=== PATIENT | female | born 1970 | race Caucasian/White ===

== ENCOUNTER 2022-11-09 22:11 | Inpatient (IN) | payer MEDICARE, OTHER ==
[~2022-11-09] VITALS: Ht 162.6 cm; Wt 65.8 kg
--- NOTE | 2022-11-09 23:00 | NUR ---
PT BIBA FOR SYNCOPY. PT PLACED ON MONITOR.
[2022-11-09] MEDS ORDERED: IV NORMAL SALINE 500 ML BAG IV ONE (23:15)
[2022-11-09] MEDS ORDERED: MORPHINE SULFATE 2 MG/1 ML DISP.SYRIN IV ONE (23:30)
[2022-11-09 23:41] LABS: CARBON DIOXIDE 33 mmol/L (21-32); CHLORIDE 103 mmol/L (98-107); CREATININE 0.4 mg/dL (0.6-1.3); POTASSIUM 4.2 mmol/L (3.5-5.1); UREA NITROGEN, BLOOD 10 mg/dL (7-18)
[2022-11-09] MEDS ORDERED: LORAZEPAM 2 MG/1 ML VIAL IV ONE (23:45)
[2022-11-09 23:49] LABS: ALANINE AMINOTRANSFERASE 13 U/L (14-59); ALKALINE PHOSPHATASE 96 U/L (50-136); ASPARTATE AMINOTRANSFERASE 14 U/L (15-37); BILIRUBIN,DIRECT 0.1 mg/dL (0.0-0.2); BILIRUBIN,TOTAL 0.2 mg/dL (0.2-1.0); TOTAL PROTEIN, SERUM 7.3 g/dL (6.4-8.2)
[2022-11-09] MEDS ORDERED: MORPHINE SULFATE 2 MG/1 ML DISP.SYRIN ONE (23:50)
[2022-11-09] MEDS ORDERED: LORAZEPAM 2 MG/1 ML VIAL ONE (23:51)
[2022-11-09 23:55] LABS: THYROID STIMULATING HORMONE 0.856 mIU/mL (0.358-3.740)
[2022-11-10 00:06] LABS: HEMATOCRIT 29.1 % (31.2-41.9); MEAN CORPUSCULAR HEMOGLOBIN 31.7 uug (24.7-32.8); PLATELET COUNT (AUTO) 938 K/uL (179-408)
[2022-11-10] MEDS ORDERED: IV D5W-0.45% NS +20 KCL 1,000 ML IV ONE ×2 (00:30→05:37)
--- NOTE | 2022-11-10 00:30 | NUR ---
[facility] SPEAKING TO DR LONG.
[2022-11-10] MEDS ORDERED: IV D5 1/2 NS 1000 ML 1,000 ML IV PRN (00:45)
[2022-11-10] MEDS ORDERED: LORAZEPAM 2 MG/1 ML VIAL IV PRN ×2 (00:45→13:45)
[2022-11-10] MEDS ORDERED: ENOXAPARIN SODIUM 40 MG/0.4 ML DISP.SYRIN SQ SCH ×3 (00:45→13:45)
[2022-11-10] MEDS ORDERED: ONDANSETRON 4 MG/2 ML VIAL IV PRN ×2 (00:45→13:45)
[2022-11-10] MEDS ORDERED: REMEDY ESSENTIAL ZINC PASTE 113 GM TP PRN ×2 (00:45→13:45)
[2022-11-10] MEDS ORDERED: ENOXAPARIN SODIUM 40 MG/0.4 ML DISP.SYRIN SQ ONE (05:36)
--- NOTE | 2022-11-10 07:46 | NUR ---
called 3rd floor for report. no nurse assigned yet awaiting for call back
--- NOTE | 2022-11-10 08:27 | NUR ---
collected MRSA and sent to lab
--- NOTE | 2022-11-10 08:52 | NUR ---
kan care done
[2022-11-10 10:38] LABS: *BILIRUBIN,URIN NEGATIVE (NEGATIVE); *CLARITY,URINE CLEAR (CLEAR); *COLOR,URINE Other (YELLOW); *KETONES,URINE NEGATIVE (NEGATIVE); *UROBILINOGEN,URINE 0.2 E.U./dl (NORMAL); LEUKOCYTE ESTERASE ,URINE NEGATIVE (NEGATIVE); NITRITE, URINE NEGATIVE (NEGATIVE); UGLUCOSE NEGATIVE (NEGATIVE)
[2022-11-10 10:39] LABS: *BLOOD, URINE TRACE (NEGATIVE)
[2022-11-10 11:08] LABS: BACTERIA,URINE FEW /HPF (NONE SEEN); SQUAMOUS EPITHELIAL CELL,UR FEW /HPF (NONE SEEN); WBC,URINE 0-3 /HPF (0-3)
[2022-11-10] MEDS ORDERED: PANTOPRAZOLE SODIUM 40 MG VIAL IV SCH (12:00)
--- NOTE | 2022-11-10 12:42 | NUR ---
called to confirm if we can transfer patient to [facility]. will wait for Kyra TYLER to call back
--- NOTE | 2022-11-10 13:03 | NUR ---
kan care done
[2022-11-10] MEDS ORDERED: MAGNESIUM HYDROXIDE 30 ML LIQUID UDC PO PRN (13:45)
[2022-11-10] MEDS ORDERED: ACETAMINOPHEN 325 MG TABLET PO PRN (13:45)
--- NOTE | 2022-11-10 13:53 | NUR ---
endorsed to Kyra TYLER to [facility]
--- NOTE | 2022-11-10 14:43 | NUR ---
transferred to [facility]
[2022-11-10 15:00] VITALS: BP 188/104; TEMP 98.5; O2SAT 97
--- NOTE | 2022-11-10 15:00 | NUR ---
Received this 52 yo female from ER per pamella with the diagnosis of Seizure. Transferred to bed comfortably. Routine admission care rendered. Awake, alert, oriented x 4. Placed on tele, ST 140. Noted elevated BP. MD aware. Sacral wounds noted. IVF started as ordered.
[2022-11-10] MEDS: IV 1/2NS 1000 ML 1,000 ML IV PRN (15:35)
[2022-11-10] MEDS: hydrALAZINE HCL 20 MG/1 ML VIAL IV PRN (17:19)
--- NOTE | 2022-11-10 19:00 | NUR ---
CT head report relayed to MD. Spoke with neurologist with orders. Home medication reconciled. Hydralazine given for elevated BP as ordered. HR 154 MD informed. Endorsed for further care
[2022-11-10] MEDS ORDERED: LACT1CAP57 PO (19:07)
[2022-11-10] MEDS ORDERED: DIPH25TA27 PO (19:07)
[2022-11-10] MEDS ORDERED: BACL5TAB PO (19:07)
[2022-11-10] MEDS ORDERED: NYST15CR TP (19:07)
[2022-11-10] MEDS ORDERED: CYCL5.5D3 OP (19:07)
[2022-11-10] MEDS ORDERED: CIPR500S2 PO (19:07)
[2022-11-10] MEDS ORDERED: HYDR-3976 PO (19:07)
[2022-11-10] MEDS ORDERED: LEVE100S PO (19:07)
[2022-11-10] MEDS ORDERED: BISA10SU61 RC (19:07)
[2022-11-10] MEDS ORDERED: DULO30CA2 PO (19:07)
[2022-11-10] MEDS ORDERED: ALPR0.5T PO (19:07)
[2022-11-10] MEDS ORDERED: NALO1DIS IVP (19:07)
[2022-11-10] MEDS ORDERED: ENOX40DI SQ (19:07)
[2022-11-10] MEDS ORDERED: IPRA0.2S6 NEB (19:07)
[2022-11-10] MEDS ORDERED: ONDA-104 IV (19:07)
[2022-11-10] MEDS ORDERED: DOCU50LI17 PO (19:07)
[2022-11-10] MEDS ORDERED: AMYL1CAP54 PO (19:07)
[2022-11-10] MEDS ORDERED: ACET-3117 PO (19:07)
[2022-11-10] MEDS ORDERED: ALBU5SOL7 IH ×2 (19:07)
[2022-11-10] MEDS ORDERED: PANT40TA49 PO (19:07)
[2022-11-10] MEDS ORDERED: IPRA0.2S48 NEB (19:07)
[2022-11-10] MEDS ORDERED: SENN8.6T19 PO (19:07)
[2022-11-10] MEDS ORDERED: ZONI100C31 PO (19:07)
[2022-11-10] MEDS ORDERED: METO25TA6 PO (19:07)
[2022-11-10] MEDS ORDERED: BUSP5TAB3 PO (19:07)
[2022-11-10] MEDS ORDERED: VALP250S3 PO (19:07)
[2022-11-10] MEDS ORDERED: ROPI0.255 PO (19:07)
[2022-11-10] MEDS ORDERED: POLY250017 PO (19:07)
[2022-11-10] MEDS ORDERED: GABA-532 PO (19:07)
[2022-11-10] MEDS ORDERED: LIDO30AD10 TD (19:07)
[2022-11-10] MEDS ORDERED: VANC250C12 IV (19:07)
[2022-11-10] MEDS ORDERED: LACT10SO58 PO (19:07)
[2022-11-10] MEDS ORDERED: MENT71OI TP (19:07)
[2022-11-10] MEDS ORDERED: SODI473S8 TOP (19:07)
[2022-11-10] MEDS ORDERED: POLY15DR31 OP (19:07)
[2022-11-10] MEDS ORDERED: MELA3CAP2 PO (19:07)
[2022-11-10] MEDS ORDERED: LACTULOSE 20 G/30 ML LIQUID UDC PO PRN (19:15)
[2022-11-10] MEDS ORDERED: ALPRAZOLAM 0.5 MG TABLET PO PRN (19:15)
[2022-11-10] MEDS ORDERED: VALPROIC ACID 250 MG CAPSULE PO SCH ×2 (19:15→21:00)
[2022-11-10] MEDS ORDERED: ALBUTEROL SULFATE 2.5 MG/ 0.5 ML NEBU NEB PRN (19:15)
[2022-11-10] MEDS ORDERED: BISACODYL 10 MG SUPP.RECT RC PRN (19:15)
--- NOTE | 2022-11-10 19:35 | NUR ---
Patient still tachycardic HR 154, Dr Asif informed with new order stat EKG.
[2022-11-10 20:00] VITALS: BP 148/84; TEMP 100.4; O2SAT 96
[2022-11-10] MEDS: BACLOFEN 10 MG TABLET PO SCH (20:48)
[2022-11-10] MEDS: DULOXETINE 30 MG CAPSULE.DR PO SCH (20:51)
[2022-11-10] MEDS: ropiniROLE 0.25 MG TABLET PO SCH (21:00)
[2022-11-10] MEDS ORDERED: ZONISAMIDE 100 MG CAPSULE PO SCH (21:00)
[2022-11-10] MEDS ORDERED: levETIRAcetam 500 MG TABLET PO SCH (21:00)
--- NOTE | 2022-11-10 22:10 | NUR ---
EKG result reported to Dr. Thapa and Dr. Borrego, no new order.
[2022-11-10] MEDS: MORPHINE SULFATE 2 MG/1 ML DISP.SYRIN IV PRN (22:40)
[2022-11-11] VITALS (13 sets, daily range): BP systolic 117–183; BP diastolic 79–106; TEMP 97.4–99; O2SAT 94–100
[2022-11-11] MEDS: IPRATROPIUM BROMIDE 0.5 MG/2.5 ML NEBU NEB SCH ×4 (01:17→20:41)
[2022-11-11] MEDS: MORPHINE SULFATE 2 MG/1 ML DISP.SYRIN IV PRN ×2 (03:58→10:13)
[2022-11-11] MEDS: hydrALAZINE HCL 20 MG/1 ML VIAL IV PRN (04:58)
[2022-11-11] MEDS: IV 1/2NS 1000 ML 1,000 ML IV PRN ×2 (05:43→21:20)
[2022-11-11] MEDS: PANTOPRAZOLE SODIUM 40 MG TABLET.DR PO SCH (06:47)
[2022-11-11 07:09] LABS: HEMATOCRIT 30.1 % (31.2-41.9); MEAN CORPUSCULAR HEMOGLOBIN 30.5 uug (24.7-32.8); MEAN CORPUSCULAR VOLUME 96.1 fL (75.5-95.3); PLATELET COUNT (AUTO) 829 K/uL (179-408)
[2022-11-11 07:29] LABS: CARBON DIOXIDE 26 mmol/L (21-32); CHLORIDE 92 mmol/L (98-107); CHOLESTEROL 175 mg/dL (<200); CREATININE 0.3 mg/dL (0.6-1.3); HDL CHOLESTEROL 66 mg/dL (40-60); PHOSPHOROUS 3.9 mg/dL (2.5-4.9); POTASSIUM 3.7 mmol/L (3.5-5.1); TRIGLYCERIDES 102 MG/DL (30-150); UREA NITROGEN, BLOOD 8 mg/dL (7-18)
[2022-11-11 07:38] LABS: THYROID STIMULATING HORMONE 1.574 mIU/mL (0.358-3.740)
[2022-11-11] MEDS: HYDROCODONE/APAP 5-325MG TABLET PO PRN (07:57)
[2022-11-11] MEDS: DOCUSATE SODIUM 100 MG/10 ML LIQUID UDC PO SCH (08:42)
[2022-11-11] MEDS: GABAPENTIN 100 MG CAPSULE PO SCH ×3 (08:42→16:48)
[2022-11-11] MEDS: BACLOFEN 10 MG TABLET PO SCH ×2 (08:42→21:06)
[2022-11-11] MEDS: busPIRone 5 MG TABLET PO SCH ×3 (08:42→16:48)
[2022-11-11] MEDS: LIDOCAINE 5% PATCH TD SCH (08:42)
[2022-11-11] MEDS: CULTURELLE CAPSULE PO SCH (08:42)
[2022-11-11] MEDS: SENNOSIDES 1 TABLET PO SCH ×2 (08:53→10:15)
[2022-11-11] MEDS ORDERED: ENOXAPARIN SODIUM 40 MG/0.4 ML DISP.SYRIN SQ SCH (09:00)
[2022-11-11] MEDS ORDERED: NYSTATIN CREAM 30 GM TUBE TP SCH (09:00)
[2022-11-11] MEDS: ENOXAPARIN SODIUM 40 MG/0.4 ML DISP.SYRIN SQ SCH (09:00)
[2022-11-11] MEDS ORDERED: levETIRAcetam 500 MG/5 ML LIQUID UDC PO SCH (09:00)
[2022-11-11] MEDS ORDERED: CALMOSEPTINE 113 GM OINTMENT TP SCH (09:00)
[2022-11-11] MEDS: levETIRAcetam 500 MG TABLET PO SCH ×2 (09:03→21:07)
[2022-11-11] MEDS ORDERED: INSU100V39 SQ (12:57)
[2022-11-11] MEDS: SODIUM HYPOCHLORITE 0.125% (QUARTER STRENGTH) 473 ML BOTTLE TP SCH (13:00)
[2022-11-11] MEDS: MEDIHONEY= THERAHONEY 1.5 OZ TUBE TOP SCH (13:00)
--- NOTE | 2022-11-11 13:04 | NUR ---
WOUND CARE CONSULT: PT PRESENTS WITH SACRAL UNSTAGEABLE PRESSURE ULCER, RT BUTTOCK STAGE 4 PRESSURE ULCER AND LEFT BUTTOCK STAGE 3 PRESSURE ULCER, ALL PRESENT ON ADMISSION. DR HARRIET ANDERS CALLED FOR SURGICAL CONSULT. DISCUSSED SKIN PROTECTION AND WOUND CARE RECOMMENDATIONS WITH NURSING STAFF. PT IS INCONTNENT. FIRST STEP LOW AIRLOSS MATTRESS IS ON ORDER. MD IN AGREEMENT WITH PLAN OF CARE. Addendum: 11/11/22 at 1306 by MANOLO BARRETT RN Amended: Links added.
[2022-11-11] MEDS ORDERED: GABA600T12 PO (13:52)
[2022-11-11] MEDS: VALPROIC ACID 250 MG CAPSULE PO SCH ×2 (14:00→22:10)
[2022-11-11] MEDS: NYSTATIN CREAM 30 GM TUBE TP SCH (17:53)
--- NOTE | 2022-11-11 19:23 | NUR ---
Handoff with NAYELI Davis.
[2022-11-11] MEDS: DULOXETINE 30 MG CAPSULE.DR PO SCH (21:06)
[2022-11-11] MEDS: ZONISAMIDE 100 MG CAPSULE PO SCH (21:06)
[2022-11-11] MEDS: ropiniROLE 0.25 MG TABLET PO SCH (21:07)
[2022-11-12] VITALS (15 sets, daily range): BP systolic 101–169; BP diastolic 58–99; TEMP 97.7–98.4; O2SAT 97–100
[2022-11-12] MEDS: IPRATROPIUM BROMIDE 0.5 MG/2.5 ML NEBU NEB SCH ×4 (01:13→20:15)
[2022-11-12] MEDS: MORPHINE SULFATE 2 MG/1 ML DISP.SYRIN IV PRN ×2 (04:50→15:32)
[2022-11-12] MEDS: VALPROIC ACID 250 MG CAPSULE PO SCH ×3 (06:07→21:46)
[2022-11-12] MEDS: PANTOPRAZOLE SODIUM 40 MG TABLET.DR PO SCH (06:27)
[2022-11-12 07:13] LABS: MEAN CORPUSCULAR HEMOGLOBIN 31.2 uug (24.7-32.8); MEAN CORPUSCULAR VOLUME 95.6 fL (75.5-95.3); PLATELET COUNT (AUTO) 710 K/uL (179-408)
[2022-11-12 07:39] LABS: CARBON DIOXIDE 32 mmol/L (21-32); CHLORIDE 103 mmol/L (98-107); CREATININE 0.3 mg/dL (0.6-1.3); MAGNESIUM 2.2 mg/dL (1.8-2.4); PHOSPHOROUS 4.5 mg/dL (2.5-4.9); UREA NITROGEN, BLOOD 4 mg/dL (7-18)
[2022-11-12 07:47] LABS: POTASSIUM 2.8 mmol/L (3.5-5.1)
[2022-11-12] MEDS: DOCUSATE SODIUM 100 MG/10 ML LIQUID UDC PO SCH (08:38)
[2022-11-12] MEDS: BACLOFEN 10 MG TABLET PO SCH ×2 (08:38→21:45)
[2022-11-12] MEDS: levETIRAcetam 500 MG TABLET PO SCH ×2 (08:39→21:47)
[2022-11-12] MEDS: GABAPENTIN 300 MG CAPSULE PO SCH ×3 (08:39→16:54)
[2022-11-12] MEDS: CULTURELLE CAPSULE PO SCH (08:39)
[2022-11-12] MEDS: busPIRone 5 MG TABLET PO SCH ×3 (08:40→16:54)
[2022-11-12] MEDS: POTASSIUM CHLORIDE 50 ML IV SCH ×6 (08:40→15:08)
[2022-11-12] MEDS: SENNOSIDES 1 TABLET PO SCH (08:40)
[2022-11-12] MEDS: MEDIHONEY= THERAHONEY 1.5 OZ TUBE TOP SCH (08:41)
[2022-11-12] MEDS: NYSTATIN CREAM 30 GM TUBE TP SCH ×2 (08:41→16:51)
[2022-11-12] MEDS: LIDOCAINE 5% PATCH TD SCH (08:41)
[2022-11-12] MEDS: SODIUM HYPOCHLORITE 0.125% (QUARTER STRENGTH) 473 ML BOTTLE TP SCH (08:44)
[2022-11-12] MEDS: ENOXAPARIN SODIUM 40 MG/0.4 ML DISP.SYRIN SQ SCH (08:45)
[2022-11-12] MEDS: MUPIROCIN 2% OINT 22 GM TUBE NS SCH ×2 (11:33→21:00)
[2022-11-12] MEDS: LABETALOL HCL 100 MG/20 ML VIAL IV PRN (15:34)
--- NOTE | 2022-11-12 18:30 | NUR ---
Shift Note: Patient alert to self, place and situation. Oxygen at [address] on telemetry. Incontinent. Wound care to sacrum and buttocks per order. Dressing to midline changed. Abnormal labs addressed. Assisted with all ADL's. Family updated on status of the patient and would like hospice upon discharge. Will continue current POC.
[2022-11-12] MEDS: ZONISAMIDE 100 MG CAPSULE PO SCH (21:45)
[2022-11-12] MEDS: DULOXETINE 30 MG CAPSULE.DR PO SCH (21:46)
[2022-11-12] MEDS: ropiniROLE 0.25 MG TABLET PO SCH (21:47)
[2022-11-13] VITALS (14 sets, daily range): BP systolic 124–175; BP diastolic 76–95; TEMP 97.5–98.4; O2SAT 97–100
[2022-11-13] MEDS: IPRATROPIUM BROMIDE 0.5 MG/2.5 ML NEBU NEB SCH ×4 (02:05→21:10)
[2022-11-13] MEDS: IV 1/2NS 1000 ML 1,000 ML IV PRN ×2 (03:02→17:46)
[2022-11-13] MEDS: LABETALOL HCL 100 MG/20 ML VIAL IV PRN ×2 (04:38→22:12)
[2022-11-13] MEDS: HYDROCODONE/APAP 5-325MG TABLET PO PRN ×2 (06:19→21:54)
[2022-11-13] MEDS: VALPROIC ACID 250 MG CAPSULE PO SCH ×3 (06:19→21:13)
[2022-11-13] MEDS: PANTOPRAZOLE SODIUM 40 MG TABLET.DR PO SCH (06:20)
--- NOTE | 2022-11-13 07:27 | NUR ---
REPORT GIVEN TO NAYELI BERGER
[2022-11-13] MEDS: NYSTATIN CREAM 30 GM TUBE TP SCH ×2 (09:00→17:46)
[2022-11-13] MEDS: SODIUM HYPOCHLORITE 0.125% (QUARTER STRENGTH) 473 ML BOTTLE TP SCH (09:00)
[2022-11-13] MEDS: MEDIHONEY= THERAHONEY 1.5 OZ TUBE TOP SCH (09:00)
[2022-11-13] MEDS: LIDOCAINE 5% PATCH TD SCH (09:25)
[2022-11-13] MEDS: DOCUSATE SODIUM 100 MG/10 ML LIQUID UDC PO SCH (09:25)
[2022-11-13] MEDS: ENOXAPARIN SODIUM 40 MG/0.4 ML DISP.SYRIN SQ SCH (09:27)
[2022-11-13] MEDS: GABAPENTIN 300 MG CAPSULE PO SCH ×3 (09:28→17:46)
[2022-11-13] MEDS: CULTURELLE CAPSULE PO SCH (09:28)
[2022-11-13] MEDS: SENNOSIDES 1 TABLET PO SCH (09:28)
[2022-11-13] MEDS: MUPIROCIN 2% OINT 22 GM TUBE NS SCH ×2 (09:28→22:27)
[2022-11-13] MEDS: busPIRone 5 MG TABLET PO SCH ×3 (09:29→17:46)
[2022-11-13] MEDS: levETIRAcetam 500 MG TABLET PO SCH ×2 (09:29→21:11)
[2022-11-13] MEDS: BACLOFEN 10 MG TABLET PO SCH ×2 (09:29→21:11)
--- NOTE | 2022-11-13 18:06 | NUR ---
Shift Note: Patient remains alert, oriented to person, place and situation. oxygen at 2 LPM. Telemetry discontinued. Incontinent of bowel and bladder. Totally dependent for ALD's . Speech therapy came to see the patient and upgraded her diet to regular. Wound care done per orders. Remains on low air loss mattress. Repositioned Q 2 hours. Will continue current POC.
[2022-11-13] MEDS: GLUCERNA SHAKE 237 ML CAN PO SCH (18:31)
--- NOTE | 2022-11-13 20:00 | NUR ---
Received patient alert oriented, no sob, no chest pain, complain of gen body/wound pain, will medicate as ordered, received patient left upper arm midline leaking, stop IV for now, discontinue midline, reinserted left forearm peripheral line, patient BP elevated will give prn BP meds. no vomiting no nausea, asymptomatic, cont to monitor.
[2022-11-13] MEDS: ZONISAMIDE 100 MG CAPSULE PO SCH (21:10)
[2022-11-13] MEDS: DULOXETINE 30 MG CAPSULE.DR PO SCH (21:11)
[2022-11-13] MEDS: ropiniROLE 0.25 MG TABLET PO SCH (21:14)
[2022-11-14] VITALS (12 sets, daily range): BP systolic 96–172; BP diastolic 66–100; TEMP 97.6–98.4; O2SAT 97–100
[2022-11-14] MEDS: IPRATROPIUM BROMIDE 0.5 MG/2.5 ML NEBU NEB SCH ×5 (01:30→20:07)
--- NOTE | 2022-11-14 05:48 | NUR ---
Patient awake, no sob no chest pain, no complain of pain at this time, hob elevated, tx done on multiple open wound on sacrum, right and left buttock (ischium), patient urinary opening was big, smith cath will not stay due enlarge opening, applied pure wick for skin management, turn and reposition, noted some anxiety Mb by being needy. Kept clean dry and comfortable, cont to monitor.
[2022-11-14] MEDS: PANTOPRAZOLE SODIUM 40 MG TABLET.DR PO SCH (06:05)
[2022-11-14] MEDS: VALPROIC ACID 250 MG CAPSULE PO SCH ×3 (06:05→21:15)
[2022-11-14 08:07] LABS: HEMATOCRIT 28.5 % (31.2-41.9); MEAN CORPUSCULAR HEMOGLOBIN 31.1 uug (24.7-32.8); MEAN CORPUSCULAR VOLUME 98.2 fL (75.5-95.3); PLATELET COUNT (AUTO) 449 K/uL (179-408)
[2022-11-14 08:18] LABS: ALANINE AMINOTRANSFERASE 7 U/L (14-59); ALKALINE PHOSPHATASE 76 U/L (50-136); ASPARTATE AMINOTRANSFERASE 10 U/L (15-37); BILIRUBIN,TOTAL 0.1 mg/dL (0.2-1.0); CARBON DIOXIDE 39 mmol/L (21-32); CHLORIDE 106 mmol/L (98-107); CREATININE 0.2 mg/dL (0.6-1.3); MAGNESIUM 2.4 mg/dL (1.8-2.4); PHOSPHOROUS 3.7 mg/dL (2.5-4.9); POTASSIUM 4.2 mmol/L (3.5-5.1); TOTAL PROTEIN, SERUM 6.1 g/dL (6.4-8.2); UREA NITROGEN, BLOOD 2 mg/dL (7-18)
[2022-11-14] MEDS: busPIRone 5 MG TABLET PO SCH ×3 (08:22→19:00)
[2022-11-14] MEDS: GABAPENTIN 300 MG CAPSULE PO SCH ×3 (08:23→19:00)
[2022-11-14] MEDS: DOCUSATE SODIUM 100 MG/10 ML LIQUID UDC PO SCH (08:23)
[2022-11-14] MEDS: BACLOFEN 10 MG TABLET PO SCH ×2 (08:25→20:48)
[2022-11-14] MEDS: levETIRAcetam 500 MG TABLET PO SCH ×2 (08:26→20:46)
[2022-11-14] MEDS: CULTURELLE CAPSULE PO SCH (08:26)
[2022-11-14] MEDS: GLUCERNA SHAKE 237 ML CAN PO SCH ×3 (08:27→19:00)
[2022-11-14] MEDS: MUPIROCIN 2% OINT 22 GM TUBE NS SCH ×2 (08:27→21:41)
[2022-11-14] MEDS: SODIUM HYPOCHLORITE 0.125% (QUARTER STRENGTH) 473 ML BOTTLE TP SCH (08:28)
[2022-11-14] MEDS: SENNOSIDES 1 TABLET PO SCH (08:37)
[2022-11-14] MEDS: MEDIHONEY= THERAHONEY 1.5 OZ TUBE TOP SCH (08:38)
[2022-11-14] MEDS: NYSTATIN CREAM 30 GM TUBE TP SCH ×2 (08:39→19:00)
[2022-11-14] MEDS: IV 1/2NS 1000 ML 1,000 ML IV PRN ×2 (08:47→21:59)
[2022-11-14] MEDS: LIDOCAINE 5% PATCH TD SCH (08:47)
[2022-11-14] MEDS: ENOXAPARIN SODIUM 40 MG/0.4 ML DISP.SYRIN SQ SCH (08:57)
[2022-11-14] MEDS: DULOXETINE 30 MG CAPSULE.DR PO SCH (20:46)
[2022-11-14] MEDS: ZONISAMIDE 100 MG CAPSULE PO SCH (20:47)
[2022-11-14] MEDS: ropiniROLE 0.25 MG TABLET PO SCH (20:52)
[2022-11-14] MEDS: HYDROCODONE/APAP 5-325MG TABLET PO PRN (21:15)
[2022-11-14] MEDS: LABETALOL HCL 100 MG/20 ML VIAL IV PRN (21:17)
[2022-11-15] VITALS (8 sets, daily range): BP systolic 114–175; BP diastolic 66–108; TEMP 97.9–98.3; O2SAT 97–100
[2022-11-15] MEDS: IPRATROPIUM BROMIDE 0.5 MG/2.5 ML NEBU NEB SCH ×2 (01:21→07:40)
[2022-11-15] MEDS: VALPROIC ACID 250 MG CAPSULE PO SCH (05:31)
[2022-11-15] MEDS: PANTOPRAZOLE SODIUM 40 MG TABLET.DR PO SCH (06:01)
--- NOTE | 2022-11-15 06:41 | NUR ---
PATIENT ASLEEP BUT AROUSABLE, NO COMPLAIN OF PAIN AT THIS TIME, COMPLAIN OF PAIN WHEN ONLY MOVED OR REPOSITION, TX CONT ON MULTIPLE WOUNDS, NO SOB NO CHEST CONGESTION, CONT TO MONITOR.
--- NOTE | 2022-11-15 08:00 | NUR ---
Received patient lying in bed awake, alert and oriented. No signs of distress, no . Patient with O2 cannula at 2 lpm via nasal cannula, IVF 1/2NS at 75ml/hr infusing well at left forearm g.20 intact. Vital signs taken and recorded. Due medications given and tolerated with aspiration precautions. Presence of purewick connected to suction wall draining. Morning care and wound care done. Observed accordingly. Needs attended.
[2022-11-15] MEDS: levETIRAcetam 500 MG TABLET PO SCH (08:51)
[2022-11-15] MEDS: busPIRone 5 MG TABLET PO SCH (08:51)
[2022-11-15] MEDS: HYDROCODONE/APAP 5-325MG TABLET PO PRN (08:51)
[2022-11-15] MEDS: BACLOFEN 10 MG TABLET PO SCH (08:51)
[2022-11-15] MEDS: SENNOSIDES 1 TABLET PO SCH (08:51)
[2022-11-15] MEDS: CULTURELLE CAPSULE PO SCH (08:51)
[2022-11-15] MEDS: DOCUSATE SODIUM 100 MG/10 ML LIQUID UDC PO SCH (08:52)
[2022-11-15] MEDS: LIDOCAINE 5% PATCH TD SCH (08:53)
[2022-11-15] MEDS: ENOXAPARIN SODIUM 40 MG/0.4 ML DISP.SYRIN SQ SCH (08:53)
[2022-11-15] MEDS: NYSTATIN CREAM 30 GM TUBE TP SCH (08:57)
[2022-11-15] MEDS: GABAPENTIN 300 MG CAPSULE PO SCH (08:57)
[2022-11-15] MEDS: MEDIHONEY= THERAHONEY 1.5 OZ TUBE TOP SCH (08:58)
[2022-11-15] MEDS: SODIUM HYPOCHLORITE 0.125% (QUARTER STRENGTH) 473 ML BOTTLE TP SCH (08:58)
[2022-11-15] MEDS: GLUCERNA SHAKE 237 ML CAN PO SCH (09:12)
[2022-11-15] MEDS: MUPIROCIN 2% OINT 22 GM TUBE NS SCH (09:12)
--- NOTE | 2022-11-15 12:00 | NUR ---
Patient got high blood pressure before discharge BP 175/103 IV reinserted again at right forearm given Trandate 10mg IV as ordered. Monitored vital signs and recorded Report given to Juan Antonio Bragg, answered all question. Repeated BP after 30mins. 117/63, patient is stable Given and instructed discharge summary/papers to ambulance attendance with POLST papers Removed IV catheter clean and dry Assisted patient transfer to [facility], transported via ambulance Discharge at 1230
[2022-11-15] MEDS: LABETALOL HCL 100 MG/20 ML VIAL IV PRN (12:03)
== END 2022-11-15 12:30 | disposition hospice, inpatient (51) | DRG 100 ==
LOC: ER 22:11 → TRANSITION 11-10 00:38 → MEDSURG3 11-10 14:17 → TELE3 11-10 14:40 → MEDSURG3 11-13 12:42
PROVIDERS: ADMIT Nurse Practitioner Acute Care
DX: G40.909 Epilepsy, unspecified, not intractable, without status epilepticus (principal); G82.50 Quadriplegia, unspecified; L89.154 Pressure ulcer of sacral region, stage 4; L89.314 Pressure ulcer of right buttock, stage 4; G95.0 Syringomyelia and syringobulbia; E44.0 Moderate protein-calorie malnutrition; J96.10 Chronic respiratory failure, unspecified whether with hypoxia or hypercapnia; E87.1 Hypo-osmolality and hyponatremia; G93.40 Encephalopathy, unspecified; Z66 Do not resuscitate; Z51.5 Encounter for palliative care; L89.323 Pressure ulcer of left buttock, stage 3; Z98.2 Presence of cerebrospinal fluid drainage device; G47.33 Obstructive sleep apnea (adult) (pediatric); E88.09 Other disorders of plasma-protein metabolism, not elsewhere classified; R00.0 Tachycardia, unspecified; G89.29 Other chronic pain; M54.9 Dorsalgia, unspecified; I10 Essential (primary) hypertension; Z87.01 Personal history of pneumonia (recurrent); E87.6 Hypokalemia; Z88.8 Allergy status to other drugs, medicaments and biological substances; D75.839 Thrombocytosis, unspecified; D53.9 Nutritional anemia, unspecified; Z22.322 Carrier or suspected carrier of Methicillin resistant Staphylococcus aureus
CPT/HCPCS: 36415; 70450; 71045; 80164; 83605; 83735; 84100; 84443; 84484; 85025; 87040; 93005; 94640; 94664; 94760; A6209; A6213; C1758; C9113; G0378; J0360; J1650; J2060; J2270; J3480; J3490; J3590; J7040; J8499